=== PATIENT | male | born 1950 | race Caucasian/White ===

== ENCOUNTER 2020-09-08 10:42 | Emergency (ER) | payer MEDICARE, SELFPAY ==
[2020-09-08 10:43] VITALS: BP 124/78; PULSE 67; RESP 18; TEMP 35.6; O2SAT 94; BMI 40.5
--- NOTE | 2020-09-08 10:49 | ED.RN ---
ACCORDING TO TRIAGE SCREENING TOOL, PT REQUIRES SI PRECAUTIONS. CHARGE NURSE NOTIFIED OF PT COMPLAINTS. SOCIAL CONSULT INITIATED FROM TRIAGE, PT HERE ALSO FOR ABDOMINAL PAIN AND BLOOD IN STOOL.
--- NOTE | 2020-09-08 10:53 | ED.RN ---
THIS RN SPOKE WITH ED SUPERVISOR DRYING KENY, INFORMING HER OF PT PRESENTING COMPLAINTS.
--- NOTE | 2020-09-08 11:26 | CT_ITS ---
STUDY: CT ABDOMEN AND PELVIS WITH CONTRAST REASON FOR EXAM: Male, 70 years old. Abdominal pain RADIATION DOSAGE (If Supplied By Facility): CTDIvol = ( 26.26 ) mGy, DLP = ( 1792.28 ) mGycm TECHNIQUE: Transaxial images were obtained from the dome of the diaphragm to the symphysis pubis without oral contrast. IV 100mL Isovue-300 was administered. Sagittal and coronal images were reconstructed. Individualized dose optimization techniques were used for this CT. COMPARISON: None. FINDINGS: The visualized lung bases demonstrate minimal groundglass opacity at the left base. The visualized portions of the heart are within normal limits. Right liver cyst. Liver and spleen granulomata. There are surgical clips in the gallbladder fossa consistent with a prior cholecystectomy. There are multiple benign calcified granulomata of the spleen. Normal pancreas. There is a small, circumscribed, smooth, low attenuation left adrenal mass, consistent with an adrenal adenoma. Normal right adrenal gland. Normal right kidney. Normal left kidney. Normal visualized stomach. Normal small intestine. Normal colon. The appendix is visualized and appears normal. Normal abdominal aorta. Normal inferior vena cava. Normal retroperitoneum. Normal urinary bladder. Normal visualized prostate gland. Normal visualized abdominal wall portions of the anterior and left lateral abdominal wall are excluded from the [id number]. Normal osseous structures. CT/Abdomen/Pelvis W IV Cont ONLY IMPRESSION: No acute intra-abdominal process identified. Small focus of groundglass density in the left base is nonspecific and may represent infection in the appropriate clinical setting. Consider full chest CT for further evaluation. Prominent stool burden. Electronically Signed: Jeffery Hansen MD at 13:05 EDT Tel , Service support ,
[2020-09-08 11:39] LABS: Absolute Lymphocyte Count 1.56 X10^3/uL (0.83-4.51); Absolute Neutrophil Count 8.7 X10^3/uL (2.0-7.7); Basophil# 0.11 X10^3/uL; Eosinophil# 0.21 X10^3/uL; Eosinophils% 1.8 % (0-5); Hematocrit 48.1 % (40-54); Hemoglobin 15.9 g/dL (13.0-16.5); Lymphocyte # 1.56 X10^3/ul (0.83-4.51); Lymphocyte % 13.5 % (19-41); Mean Corp Hgb Conc 33.1 g/dL (32-36); Mean Corpuscular Volume 93.8 fL (80-94); Mean Platelet Vol. 9.2 fl (6.2-12.0); Monocyte# 0.85 X10^3/uL; Monocyte% 7.4 % (0-10); NRBC Flagged by Analyzer 0 % (0-5); Neutrophil # 8.73 X10^3/uL (2.7-7.7); Neutrophil % 75.8 % (47-70); Platelet Count 365 K/mm3 (150-450); Red Blood Count 5.13 M/mm3 (4.6-6.2); White Blood Count 11.5 K/mm3 (4.4-11.0)
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
[2020-09-08 11:47] LABS: White Blood Cells 0 SEEN /hpf (0-5)
--- NOTE | 2020-09-08 11:49 | EDS_ITS ---
HPI History of Present Illness Chief Complaint: Abd Pain Informant: patient and family Narrative Narrative: 70-year-old male presenting with abdominal pain. He states this is been ongoing over the last 6 weeks. He denies vomiting or diarrhea. He has noted some blood in his urine. He denies blood in his stool. He denies chest pain or shortness of breath. Denies fever. He has been depressed. He denies current thoughts of suicide. Family states he has been sleeping more than usual. Prior similar symptoms: Yes Recent Illness/Hospitalization: No PFSH [facility] Medical History (Updated 09/08/20 @ 16:[address] Nancy Ennis MD) Diabetes Home Medications buspirone 10 mg PO TID 10/17/15 [History Last Taken Unknown] clonazepam 1 mg PO TID 10/17/15 [History Last Taken Unknown] glipizide [Glucotrol XL] 10 mg PO DAILY 10/17/15 [History Last Taken Unknown] quetiapine [Seroquel XR] 200 mg PO BID 10/17/15 [History Last Taken Unknown] amiodarone [Pacerone] 100 mg PO DAILY 09/08/20 [History Last Taken Unknown] apixaban [Eliquis] 2.5 mg PO BID 09/08/20 [History Last Taken Unknown] citalopram 40 mg PO 09/08/20 [History Last Taken Unknown] metoprolol tartrate 50 mg PO DAILY 09/08/20 [History Last Taken Unknown] sucralfate 1 g PO QHS 09/08/20 [History Last Taken Unknown] Allergy/AdvReac Type Severity Reaction Status Date / Time metformin AdvReac Diarrhea Verified 09/08/20 10:42 Surgical History (Updated 09/08/20 @ 11:05 by Jadyn Dominguez RN) History of cholecystectomy History of cholecystectomy Social History Smoking Status: Former smoker ROS ROS ED Constitutional Constitutional ED: Denies fever(s) Eyes Eyes: Denies change in vision ENT ENT ED: Denies rhinorrhea or sore throat Cardiovascular Cardiovascular: Denies chest pain or palpitations Respiratory/Chest Respiratory/Chest: Denies cough or dyspnea Gastrointestinal Gastrointestinal: Reports abdominal pain; Denies diarrhea, nausea or vomiting Genitourinary Genitourinary ED: Reports hematuria; Denies dysuria Musculoskeletal Musculoskeletal: Denies myalgias Integumentary Denies rash Neurologic Neurologic: Denies headache(s) Psychiatric Psychiatric: Reports depression; Denies suicidal thoughts EXAM Physical Exam Const Vital Signs: 09/08/20 10:43 09/08/20 12:59 09/08/20 13:27 Temperature 96.0 F L Temperature Source Temporal Pulse Rate 67 63 63 Respiratory Rate 18 16 16 Blood Pressure 124/78 H 129/74 H 128/79 H Blood Pressure Mean 93 92 95 Pulse Ox 94 93 97 Oxygen Delivery Method Room Air Room Air Room Air 09/08/20 14:19 Temperature 98.2 F Temperature Source Oral Pulse Rate 64 Respiratory Rate 15 Blood Pressure 153/83 H Blood Pressure Mean 106 Pulse Ox 98 Oxygen Delivery Method Room Air Positive well nourished and well developed General Appearance ED: well developed HEENT Reports normocephalic and head/scalp atraumatic Eyes PERRL and EOMs intact bilaterally Neck supple General: Negative for tenderness Chest Wall inspection of chest normal Resp normal respiratory effort and clear to auscultation bilaterally Cardio regular rate and regular rhythm GI non-tender and non-distended Palpation: soft; Negative for guarding or rebound tenderness present no CVA tenderness Extremity normal to inspection Neuro oriented x3 Sensorium / Orientation: alert Psych mental status grossly normal Psych Narrative: Denies suicidal ideation Mood & Affect: depressed MDM MDM MDM Narrative Medical decision making narrative: Labs were reviewed. CT abdomen pelvis showed no acute process, prominent stool burden, groundglass density left base. Chest x-ray was obtained and shows 3.5 x 2.7 cm nodular density left perihilar region. Patient has no chest pain or shortness of breath. He is given referral to Dr. Johnston, pulmonology. He has hematuria and was referred to Dr. Maxwell, urology. Patient and were advised importance of follow-up for these findings. Patient was seen by the high school social science teacher in the emergency department. Due to his severe depression he will be voluntarily admitted to a psychiatric facility for evaluation. Patient is awaiting final disposition and will be checked out to the oncoming physician. Lab Data Attestation: I reviewed the patient's lab results. Labs: Laboratory Results - last 24 hr 09/08/20 09/08/20 09/08/20 11:02 11:08 11:08 WBC 11.5 H RBC 5.13 Hgb 15.9 Hct 48.1 MCV 93.8 MCH 31.0 MCHC 33.1 RDW Std Deviation 42.0 RDW Coeff of Kristyn 12.0 Plt Count 365 MPV 9.2 Immature Gran % (Auto) 0.500 Neut % (Auto) 75.8 H Lymph % (Auto) 13.5 L Walton % (Auto) 7.4 Eos % (Auto) 1.8 Baso % (Auto) 1.0 Absolute Neuts (auto) 8.7 H Absolute Lymphs (auto) 1.56 Nucleated RBC % 0 Sodium 136 Potassium 4.1 Chloride 101 Carbon Dioxide 28.0 Anion Gap 7 BUN 14 Creatinine 1.14 Estim Creat Clear Calc 64.04 Est GFR (MDRD) Af Amer 82 Est GFR (MDRD) Non-Af 68 BUN/Creatinine Ratio 12.3 Glucose 247 H Calcium 9.2 Total Bilirubin 0.70 AST 20 ALT 46 Alkaline Phosphatase 141 H Total Protein 7.8 Albumin 3.8 Globulin 4.0 Albumin/Globulin Ratio 1.0 Lipase 107 Urine Color Urine Clarity Urine pH Ur Specific [place] Urine Protein Urine Glucose (UA) Urine Ketones Urine Occult Blood Urine Nitrite Urine Bilirubin Urine Urobilinogen Ur Leukocyte Esterase Urine RBC Urine WBC Ur Squamous Epith Cells Urine Bacteria Urine Mucus Urine Opiates Screen NEGATIVE Urine Methadone Screen NEGATIVE Ur Barbiturates Screen NEGATIVE Ur Phencyclidine Scrn NEGATIVE Ur Amphetamines Screen NEGATIVE U Methamphetamin-MDMA NEGATIVE U Benzodiazepines Scrn NEGATIVE Urine Cocaine Screen NEGATIVE U Cannabinoids Screen NEGATIVE Ur Drug Screen Comment Ethyl Alcohol 09/08/20 09/08/20 11:20 13:30 WBC RBC Hgb Hct MCV MCH MCHC RDW Std Deviation RDW Coeff of Kristyn Plt Count MPV Immature Gran % (Auto) Neut % (Auto) Lymph % (Auto) Walton % (Auto) Eos % (Auto) Baso % (Auto) Absolute Neuts (auto) Absolute Lymphs (auto) Nucleated RBC % Sodium Potassium Chloride Carbon Dioxide Anion Gap BUN Creatinine Estim Creat Clear Calc Est GFR (MDRD) Af Amer Est GFR (MDRD) Non-Af BUN/Creatinine Ratio Glucose Calcium Total Bilirubin AST ALT Alkaline Phosphatase Total Protein Albumin Globulin Albumin/Globulin Ratio Lipase Urine Color Yellow Urine Clarity Sl. Cloudy Urine pH 6.0 Ur Specific [place] 1.020 Urine Protein 30 H Urine Glucose (UA) 50 H Urine Ketones Negative Urine Occult Blood 150 H Urine Nitrite Negative Urine Bilirubin Negative Urine Urobilinogen 1 H Ur Leukocyte Esterase Negative Urine RBC 10-25 SEEN Urine WBC 0 SEEN Ur Squamous Epith Cells 0-5 SEEN Urine Bacteria 1+ Urine Mucus 1+ Urine Opiates Screen Urine Methadone Screen Ur Barbiturates Screen Ur Phencyclidine Scrn Ur Amphetamines Screen U Methamphetamin-MDMA U Benzodiazepines Scrn Urine Cocaine Screen U Cannabinoids Screen Ur Drug Screen Comment Ethyl Alcohol 5.0 Radiography Chest X-Ray - ED: 1 View, Read by ED Physician and Read by Radiologist Diagnostic Testing: Radiology Impression Abdomen/Pelvis CT 09/08/20 11:26 IMPRESSION: No acute intra-abdominal process identified. Small focus of groundglass density in the left base is nonspecific and may represent infection in the appropriate clinical setting. Consider full chest CT for further evaluation. Prominent stool burden. Electronically Signed: Jeffery Hansen MD at 13:05 EDT Tel , Service support , Chest X-Ray 09/08/20 13:35 IMPRESSION: 3.5 cm x 2.7 cm nodular density in the left perihilar region. Correlation with CT scan is recommended. Electronically Signed: Salomón Heredia MD at 14:21 EDT , Service support , Discharge Plan Triage Chief Complaint: Abd Pain ED Provider: Nancy Ennis Dx/Rx/DC Orders Clinical Impression: Abdominal pain in male, Depression Prescriptions: No Action glipizide [Glucotrol XL] 10 MG tablet extended release 24hr 10 mg PO DAILY RF: 0 clonazepam 1 MG tablet 1 mg PO TID RF: 0 buspirone 10 MG tablet 10 mg PO TID RF: 0 quetiapine [Seroquel XR] 200 MG tablet extended release 24 hr 200 mg PO BID RF: 0 citalopram 40 mg tablet 40 mg PO RF: 0 metoprolol tartrate 50 mg tablet 50 mg PO DAILY RF: 0 sucralfate 1 gram tablet 1 g PO QHS RF: 0 amiodarone [Pacerone] 100 mg Tablet 100 mg PO DAILY RF: 0 Eliquis 2.5 mg Tablet 2.5 mg PO BID RF: 0 Primary Care Provider: Clayton Fabian Referrals: Hitesh Johnston MD [STAFF PHYSICIAN] - Angel Maxwell MD [STAFF PHYSICIAN] - Clayton Fabian MD [Primary Care Provider] -
[2020-09-08 11:56] LABS: Color, Urine Yellow (Yellow); Glucose, Dipstick 50 mg/dl (Normal); Ketone-Dipstick Negative (Negative); Leukocyte Esterase-Dipstick Negative /ul (Negative); Nitrite-Dipstick Negative (Negative); Occult Blood-Urine 150 /ul (Negative); Protein-Dipstick 30 mg/dl (Negative); Urine Bilirubin Dipstick Negative (Negative); Urine Clarity Sl. Cloudy (Clear); Urine Urobilinogen 1 mg/dl (Normal)
[2020-09-08 11:57] LABS: AST(SGOT) 20 U/L (15-37); Alanine Aminotransfer ALT/SGPT 46 U/L (16-61); Albumin, Serum 3.8 g/dL (3.2-5.0); Alkaline Phosphatase 141 U/L (45-117); Anion Gap 7 (5-15); BUN 14 mg/dL (7-18); BUN/Creat Ratio 12.3 RATIO (10-20); Calcium,Total 9.2 mg/dL (8.5-10.1); Chloride 101 mmol/L (98-107); Creatinine, Serum 1.14 mg/dL (0.70-1.30); EST Glomerular Filtration Rate 68 mL/min (>60); Est Glom Filt Rate - Afr Amer 82 mL/min (>60); Estimated Creatinine Clearance 64.04 ml/min; Glucose 247 mg/dL (74-106); Lipase 107 U/L (73-393); Potassium 4.1 mmol/L (3.5-5.1); Protein, Total 7.8 g/dL (6.4-8.2); Sodium Level 136 mmol/L (136-145)
[2020-09-08 12:05] LABS: Bacteria 1+ /hpf (None Seen); Mucous, Urine 1+ /hpf (<or=2+); Red Blood Cells-Urine 10-25 SEEN /hpf (0-5); Squamous Epithelial Cells - UA 0-5 SEEN /hpf (0-5)
--- NOTE | 2020-09-08 12:32 | CM.ED ---
r SOCIAL WORK ASSESSMENT Referral Source: Triage Suicidal screen Reason for Consult: Per report patient reports depression and triggered high risk for the depression screen. He reported to ED staff in triage that he?s been thinking about it and ?there are lots of ways?. ? ? Chief Compliant: Patient reports he has an increase in depression. Reports that he has suicidal thoughts ?on and off? with most recent being 1 week ago. Patient denied current suicidal thoughts. Patient said that he has a hard time taking a shower as he is fearful of having a panic attack. Patient said that when he has suicidal thought ?99% of the time I do not react. I do self-talk and it has worked for 20 years.? ? Patient?s nurse said that patient needed a lot of direction to follow commands related to taking off his clothes. ? Marital/Social History: Patient is to his , Shaniqua. ? Living Situation: Patient and his reside in a house together in [facility]. ? Support/Resources: Patient is disabled. 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 His is a support. Patient?s children were also noted to be calling in to check on patient. ? History: No ? Education and Employment History: Patient completed the 11th year of high school and then dropped out. He did return to school, 10 years later, to get his GED. No college. ? Mental Health Treatment/History: Patient was previously at [facility] 10-12 years ago and ?has been fine since?. [facility] His next appointment is November 17, per patient?s report. ? Triggers/Stressors: His current medical condition. Patient reports to MD that he feels his ?depression? is causing his abdominal pain. ? Coping Skills: Patient reports he does ?self-talk? and ?gets on the [employer], watches tv and helps his ?. ? Abuse Issues: Denied any current or past abuse issues. ? Substance Abuse History: Patient reports he quit drinking in 1995. He reports he has never used drugs. ? Risk to Self/Others: Suicidal- Patient reports that his most recent thought was 1 week ago but told the MD it was 6 weeks ago. He may not be an accurate historian. Patient said that his suicidal plan is to ?run lawnmower into the highway[place] He reports no previous attempts. ? Homicidal-None ? Mental Status Exam: Orientation-Patient oriented to year, day of week, Month and date. Oriented to self. Oriented to location and purpose of why he is in the ED. X4. Memory-Patient was able to recall that his next appt with MD at [facility] was November 17. He was able to recall how many children and children he has accurately. ? Appearance/General Behavior: Wearing hospital gown. Not shaven, somewhat disheveled. Mood/Affect: Patient said ?I am ok? but to this keno writer / runner and MD he appears very depressed. Communication Pattern: Responds to questions. Smiles at times. Thought Process: Appropriate. Reports that several times a week he is sleeping and wakes up to see children playing baseball. SW asked what happened and he said, ?I blink my eyes and they disappear?. Patient reports this occurs a couple of times a week. General Intellectual Functioning: Average Judgment: Fair ? Assessment: Patient reports his mood is ?ok?. Denies suicidal thoughts today. Patient said that he has ?a lot of that? when asked about anxiety. Patient said that he is afraid to take a shower as he is afraid, he will have a panic attack. Patient denied impulsivity. Reports psychotic features at bedtime when he sees children playing baseball. Patient is sleeping 21 out of 24 hours a day. SW asked patient if he feels rested and he said ?sometimes?. ? Patient is voluntary in agreement for placement in inpatient psychiatric unit to assess for his psychiatric needs. ? ? ? Plan: Refer to inpatient psychiatric unit for medication management. Hilda WITT
[2020-09-08 12:59] VITALS: BP 129/74; PULSE 63; RESP 16; O2SAT 93
[2020-09-08 13:27] VITALS: BP 128/79; PULSE 63; RESP 16; O2SAT 97
--- NOTE | 2020-09-08 13:35 | RAD_ITS ---
STUDY: X-RAY CHEST REASON FOR EXAM: Male, 70 years old. Sob TECHNIQUE: Single AP portable view of the chest. COMPARISON: Comparison is made with prior study dated 10/20/2015. FINDINGS: EKG electrodes are seen. Hyperinflation. Stable mild increased interstitial markings. There is a new 3.5 cm x 2.7 cm nodular density in the left perihilar region. There is no demonstrated pleural abnormality. Normal size heart. Normal mediastinum and david. Normal visualized pulmonary arteries. There is atherosclerotic tortuosity of the aortic arch and descending thoracic aorta. There are diffuse degenerative changes of the visualized thoracic spine. Normal visualized ribs, clavicles, and shoulders. There is no demonstrated abnormality of the visualized soft tissue structures of the upper abdomen. RAD/Chest 1 View (Portable) IMPRESSION: 3.5 cm x 2.7 cm nodular density in the left perihilar region. Correlation with CT scan is recommended. Electronically Signed: Salomón Heredia MD at 14:21 EDT , Service support ,
[2020-09-08 14:05] LABS: Amphetamine Urine VISTA NEGATIVE (<1000 ng/mL); Barbiturate Urine VISTA NEGATIVE (< 200 ng/mL); Benzodiazepine Urine VISTA NEGATIVE (< 200 ng/mL); Cocaine Urine VISTA NEGATIVE (< 300 ng/mL); Ecstacy Urine VISTA NEGATIVE (< 500 ng/mL); Methadone Urine VISTA NEGATIVE (< 300 ng/mL); PCP Urine VISTA NEGATIVE (< 25 ng/mL); THC Urine VISTA NEGATIVE (< 50 ng/mL); Vista UDS pH Range 5
[2020-09-08 14:19] VITALS: BP 153/83; PULSE 64; RESP 15; TEMP 36.8; O2SAT 98
--- NOTE | 2020-09-08 15:09 | CM.UR ---
Addendum entered by Hilda Reina 09/10/20 10:49: FARAZ repeatedly encouraged patient to contact insurance provider for amount of payment they will be responsible for. FARAZ and Esther for registration had also spoke to regarding what her plan covers inpatient vs outpatient. She was provided handout and reported later that she threw it away. FARAZ updated RN and MD about plan for discharge and time. FARAZ called [facility] and updated them about time of discharge. Late entry from 09/08/20 at 20:[address] MECHANICAL ENGINEER [employer]WS Addendum entered by Hilda Reina 09/08/20 22:25: concession worker called patient's insurance provider and spoke to insurance provider. She said that the receiving agency/hospital does the insurance review. Hilda Reina RD MECHANICAL ENGINEER [employer] Addendum entered by Hilda Reina 09/08/20 19:18: Patient faxed additional information to [place] [employer] [facility]. FARAZ received call from [facility] declining patient. FARAZ called Florencia at [facility]. She said that she checked insurance and saw it was approved without issues so it is in network, per Florencia. Florencia called back and needed additional paperwork. She said that she needs covid, x ray of chest, urine screen and signed papers for consent. FARAZ went to patient's room and provided with discharge MD orders for pulmonary and urology. FARAZ met with and patient and stated that patient has been accepted. Advised that Florencia told this caption writer that she ran insurance so patient is in network. FARAZ encouraged patient's family to check with financial at [facility] tomorrow to verify and indicated she would. FARAZ called Florencia as family stated that Alex, the son will pick patient up at discharge. FARAZ inquired about visitation. NO visitation because of COVID but can make phone calls. Florencia said that patient has been approved and accepting MD is Dr. Laurent. FARAZ completed transfer paperwork, updated MD, update RN to make RN to RN call to Florencia. FARAZ updated family regarding visitation. understood and was greatful she could call and speak to patient. SW asked about any needs and patient asked for ice, which was provided for him. Patient and updated regarding the transport scheduled time. Plan: PSychiatric inpatient treatment At [facility] in [place] Hildaangie Reina RD MECHANICAL ENGINEER LISWS Addendum entered by Hilda Reina 09/08/20 16:31: FARAZ asked patient about guns and confirmed no guns or access to prescription meds. Patient said it's been like that for a long time. Addendum entered by Hilda Reina 09/08/20 15:25: FARAZ and Esther from Registration printed off patients benefits under insurance. FARAZ told patients that this is not a guarantee of payement (Esther witnessed it). Patient's was encouraged to contact insurance network. Hilda witt Original Note: FARAZ note Referral Source: Reason for referral: Depressive state, reports past suicide thoughts FARAZ called Jose L at [facility]. Jose L said that patient probably would not benefit from the program due to cognition andn amount of sleep he is getting. FARAZ called [facility]. Spoke to charge nurse. They have beds. She said to fax information over. FARAZ called [facility]. Made referral. Faxed referral to [facility]. SW was approved by [facility] for treatment however, family declined as it is not in [place] but [place]. FARAZ called patient's insurance [place]. FARAZ spoke to Rajni and they [facility] is in network. FARAZ spoke to percertication and they said that the receiving facility does the percertication. FARAZ met with patient to address specific questions from inpatient psychiatric unit. Patient is a full code. No DME's at home. NO POA. Patient has been taking meds as prescibed. He did not get covid vaccine but has been tested a couple of weeks ago and was negative. FARAZ updated patient and . FARAZ received call from [facility] and they inquired if patient had a ride home and this caption writer said yes. FARAZ updated patient. FARAZ will continue to follow. Hilda WITT
[2020-09-08] MEDS: Dicyclomine 20 MG/2 ML Vial IM (16:42)
[2020-09-08 16:43] VITALS: BP 111/73; PULSE 72; RESP 16; O2SAT 92
[2020-09-08] MEDS: Acetaminophen 500 MG Tablet 1000 MG PO (18:45)
[2020-09-08 19:43] VITALS: BP 140/73; PULSE 101; RESP 26; TEMP 37.6; O2SAT 97
[2020-09-08] MEDS: busPIRone 5 MG Tablet 20 MG PO (19:54)
== END 2020-09-08 20:00 ==
PROVIDERS: Emergency Medicine; Emergency Provider Emergency Medicine; PCP Family Medicine
DX: R10.9 Unspecified abdominal pain (principal); F32.9 Major depressive disorder, single episode, unspecified; E11.9 Type 2 diabetes mellitus without complications; Z79.84 Long term (current) use of oral hypoglycemic drugs; Z79.01 Long term (current) use of anticoagulants; Z79.899 Other long term (current) drug therapy; Z87.891 Personal history of nicotine dependence
CPT/HCPCS: 71045; 74177; 80053; 80307; 81001; 82077; 83690; 85025; 87426; 96372; 99285; J7040; Q9967; A4216

== ENCOUNTER 2020-09-23 16:48 | Emergency (ER) | payer MEDICARE, SELFPAY ==
[2020-09-23 16:50] VITALS: BP 153/76; PULSE 76; RESP 15; TEMP 36.6; O2SAT 96; BMI 39.4
[2020-09-23 16:51] VITALS: BP 153/76; PULSE 76; RESP 15; TEMP 36.6; O2SAT 96
[2020-09-23 17:06] LABS: Absolute Lymphocyte Count 2.63 X10^3/uL (0.83-4.51); Absolute Neutrophil Count 6.8 X10^3/uL (2.0-7.7); Basophil% 0.9 % (0-1); Eosinophil# 0.42 X10^3/uL; Eosinophils% 3.8 % (0-5); Hematocrit 46.2 % (40-54); Lymphocyte # 2.63 X10^3/ul (0.83-4.51); Lymphocyte % 23.8 % (19-41); Mean Corp Hgb Conc 32.5 g/dL (32-36); Mean Corpuscular Hgb 30.7 pg (27.0-32.0); Mean Corpuscular Volume 94.7 fL (80-94); Monocyte# 1.04 X10^3/uL; Monocyte% 9.4 % (0-10); NRBC Flagged by Analyzer 0 % (0-5); Neutrophil # 6.84 X10^3/uL (2.7-7.7); Neutrophil % 61.7 % (47-70); Platelet Count 329 K/mm3 (150-450); RBC Distribution Width CV 11.9 % (11.6-14.6); RBC Distribution Width SD 41.7 fl (35.1-43.9); Red Blood Count 4.88 M/mm3 (4.6-6.2); White Blood Count 11.1 K/mm3 (4.4-11.0)
[2020-09-23 17:50] LABS: ALB/GLOB Ratio 0.7 RATIO (0.9-2.4); AST(SGOT) 21 U/L (15-37); Alanine Aminotransfer ALT/SGPT 47 U/L (16-61); Albumin, Serum 3.5 g/dL (3.2-5.0); Alkaline Phosphatase 155 U/L (45-117); Anion Gap 2 (5-15); BUN 18 mg/dL (7-18); BUN/Creat Ratio 17.1 RATIO (10-20); Calcium,Total 9.4 mg/dL (8.5-10.1); Chloride 102 mmol/L (98-107); Creatinine, Serum 1.05 mg/dL (0.70-1.30); EST Glomerular Filtration Rate 75 mL/min (>60); Est Glom Filt Rate - Afr Amer 90 mL/min (>60); Estimated Creatinine Clearance 69.52 ml/min; Globulin 4.7 g/dL (2.2-4.2); Glucose 237 mg/dL (74-106); Potassium 4.4 mmol/L (3.5-5.1); Protein, Total 8.2 g/dL (6.4-8.2); Sodium Level 137 mmol/L (136-145)
[2020-09-23 17:51] VITALS: BP 153/76; PULSE 76; RESP 15; TEMP 36.6; O2SAT 96
--- NOTE | 2020-09-23 18:55 | EKG12_ITS ---
Test Reason : Blood Pressure : / mmHG Vent. Rate : 071 BPM Atrial Rate : 071 BPM P-R Int : 238 ms QRS Dur : 112 ms QT Int : 438 ms P-R-T Axes : -13 -44 005 degrees QTc Int : 475 ms Sinus rhythm with 1st degree A-V block Left axis deviation ST & T wave abnormality, consider anterior ischemia Prolonged QT Abnormal ECG Confirmed by ANIYA CASTILLO, IRWIN ([id number]), online content editor EMILY MCCLENDON ([id number]) on 09/27/2020 2:01:15 PM Referred By: EDELMIRA Confirmed By:IRWIN KWAN MD
[2020-09-23 19:11] LABS: Bacteria 0 SEEN /hpf (None Seen); Mucous, Urine 0 SEEN /hpf (<or=2+)
[2020-09-23 19:20] LABS: Color, Urine Yellow (Yellow); Glucose, Dipstick 1000 mg/dl (Normal); Ketone-Dipstick Negative (Negative); Leukocyte Esterase-Dipstick 25 /ul (Negative); Nitrite-Dipstick Negative (Negative); Occult Blood-Urine 50 /ul (Negative); Protein-Dipstick 15 mg/dl (Negative); Urine Bilirubin Dipstick Negative (Negative); Urine Clarity Sl. Cloudy (Clear); Urine Urobilinogen Normal (Normal)
[2020-09-23 19:27] LABS: Red Blood Cells-Urine 0-5 SEEN /hpf (0-5); Squamous Epithelial Cells - UA 0-5 SEEN /hpf (0-5); White Blood Cells 0-5 SEEN /hpf (0-5)
--- NOTE | 2020-09-23 20:22 | EDS_ITS ---
HPI History of Present Illness Chief Complaint: Complaint Narrative Narrative: Patient presenting for evaluation secondary to a urine culture which grew out Pseudomonas. Patient states that he was told to come to the ED for a dose of IV antibiotics. Patient is not having any dysuria currently. He did have some previously and had a Bee catheter placed. Patient feels otherwise well. [facility] Medical History Diabetes Home Medications buspirone 10 mg PO TID 10/17/15 [History Last Taken Unknown] clonazepam 1 mg PO TID 10/17/15 [History Last Taken Unknown] glipizide [Glucotrol XL] 10 mg PO DAILY 10/17/15 [History Last Taken Unknown] quetiapine [Seroquel XR] 200 mg PO BID 10/17/15 [History Last Taken Unknown] amiodarone [Pacerone] 100 mg PO DAILY 09/08/20 [History Last Taken Unknown] apixaban [Eliquis] 5 mg PO BID 09/08/20 [History Last Taken Unknown] citalopram 40 mg PO DAILY 09/08/20 [History Last Taken Unknown] metoprolol tartrate 50 mg PO DAILY 09/08/20 [History Last Taken Unknown] sucralfate 1 g PO QHS 09/08/20 [History Last Taken Unknown] tamsulosin 0.4 mg PO DAILY 09/23/20 [History Last Taken Unknown] Allergy/AdvReac Type Severity Reaction Status Date / Time metformin AdvReac Diarrhea Verified 09/23/20 16:49 Surgical History History of cholecystectomy History of cholecystectomy Social History Smoking Status: Former smoker ROS ROS ED Constitutional Constitutional ED: Denies chills, fever(s) or sweats Eyes Eyes: Denies blurry vision or change in vision ENT ENT ED: Denies ear pain or sore throat Cardiovascular Cardiovascular: Denies chest pain, palpitations or racing heartbeat Respiratory/Chest Respiratory/Chest: Denies cough, dyspnea or sputum Gastrointestinal Gastrointestinal: Denies abdominal pain, constipation, diarrhea, nausea or vomiting Genitourinary Genitourinary ED: Denies dysuria, hematuria or urinary frequency Musculoskeletal Musculoskeletal: Denies arthralgias, myalgias or neck pain Integumentary Denies abscess, Abrasions or rash Neurologic Neurologic: Denies headache(s), paresthesias or weakness Psychiatric Psychiatric: Denies anxiety, depression, suicidal ideation or suicidal thoughts Endocrine Endocrinology: Denies polydipsia or polyuria EXAM Physical Exam Const Vital Signs: 09/23/20 16:50 09/23/20 16:51 09/23/20 17:51 Temperature 97.8 F 97.8 F 97.8 F Temperature Source Temporal Temporal Temporal Pulse Rate 76 76 76 Respiratory Rate 15 15 15 Blood Pressure 153/76 H 153/76 H 153/76 H Blood Pressure Mean 101 101 101 Pulse Ox 96 96 96 Oxygen Delivery Method Room Air Room Air Room Air 09/23/20 20:39 Temperature Temperature Source Pulse Rate 80 Respiratory Rate 14 Blood Pressure 149/71 H Blood Pressure Mean Pulse Ox 99 Oxygen Delivery Method Positive well nourished General Appearance ED: NAD HEENT normocephalic and atraumatic Eyes PERRL and EOMs intact bilaterally Resp normal respiratory effort and clear to auscultation bilaterally Cardio regular rate and regular rhythm Negative for no CVA tenderness Skin Lesions: no lesions Rashes: no rashes MDM MDM MDM Narrative Medical decision making narrative: Patient was sent in for a dose of IV antibiotics due to ciprofloxacin is one of the medications that is on his sensitivities however his doctor sent him in because his QT QT is over 500. He felt it was unsafe to give him Cipro for this. I did review the urine culture and sensitivity and it looks like it is 50,000 colony-forming units. I checked an EKG which shows normal sinus rhythm with first-degree AV block without signs of ischemic change. His QT is 438 QTC 475. As interpreted by myself I rechecked a urinalysis today which is negative for infection. He does have some blood in his urine but this is likely due to the recent Bee catheterization. Patient's lab work is unremarkable discussed with Dr. Fabian he did agree that the patient should have another urine culture but did not think he needed antibiotics at this time. Discussed at length with patient and as well as son over the phone. Impression: 1. Feared complaint not found Lab Data Labs: Laboratory Results - last 24 hr 09/23/20 09/23/20 09/23/20 16:59 16:59 19:05 WBC 11.1 H RBC 4.88 Hgb 15.0 Hct 46.2 MCV 94.7 H MCH 30.7 MCHC 32.5 RDW Std Deviation 41.7 RDW Coeff of Kristyn 11.9 Plt Count 329 MPV 9.0 Immature Gran % (Auto) 0.400 Neut % (Auto) 61.7 Lymph % (Auto) 23.8 Toole % (Auto) 9.4 Eos % (Auto) 3.8 Baso % (Auto) 0.9 Absolute Neuts (auto) 6.8 Absolute Lymphs (auto) 2.63 Nucleated RBC % 0 Sodium 137 Potassium 4.4 Chloride 102 Carbon Dioxide 33.0 H Anion Gap 2 L BUN 18 Creatinine 1.05 Estim Creat Clear Calc 69.52 Est GFR (MDRD) Af Amer 90 Est GFR (MDRD) Non-Af 75 BUN/Creatinine Ratio 17.1 Glucose 237 H Calcium 9.4 Total Bilirubin 0.50 AST 21 ALT 47 Alkaline Phosphatase 155 H Total Protein 8.2 Albumin 3.5 Globulin 4.7 H Albumin/Globulin Ratio 0.7 L Urine Color Yellow Urine Clarity Sl. Cloudy Urine pH 6.0 Ur Specific [place] 1.020 Urine Protein 15 H Urine Glucose (UA) 1000 H Urine Ketones Negative Urine Occult Blood 50 H Urine Nitrite Negative Urine Bilirubin Negative Urine Urobilinogen Normal Ur Leukocyte Esterase 25 H Urine RBC 0-5 SEEN Urine WBC 0-5 SEEN Ur Squamous Epith Cells 0-5 SEEN Urine Bacteria 0 SEEN Urine Mucus 0 SEEN Discharge Plan Triage Chief Complaint: Complaint ED Provider: Tho Ledesma Dx/Rx/DC Orders Instructions: ED Symptoms With Uncertain Cause Prescriptions: No Action glipizide [Glucotrol XL] 10 MG tablet extended release 24hr 10 mg PO DAILY RF: 0 clonazepam 1 MG tablet 1 mg PO TID RF: 0 buspirone 10 MG tablet 10 mg PO TID RF: 0 quetiapine [Seroquel XR] 200 MG tablet extended release 24 hr 200 mg PO BID RF: 0 citalopram 40 mg tablet 40 mg PO DAILY RF: 0 metoprolol tartrate 50 mg tablet 50 mg PO DAILY RF: 0 sucralfate 1 gram tablet 1 g PO QHS RF: 0 amiodarone [Pacerone] 100 mg Tablet 100 mg PO DAILY RF: 0 Eliquis 2.5 mg Tablet 5 mg PO BID RF: 0 tamsulosin 0.4 mg capsule 0.4 mg PO DAILY RF: 0 Primary Care Provider: Clayton Fabian Referrals: Clayton Fabian MD [Primary Care Provider] - Disposition Disposition: Home, self care Discharge Date/Time: 09/23/20 20:39
[2020-09-23 20:39] VITALS: BP 149/71; PULSE 80; RESP 14; O2SAT 99
== END 2020-09-23 20:39 | disposition home or self-care (01) ==
PROVIDERS: Emergency Provider Student in an Organized Health Care Education/Training Program; PCP Family Medicine
DX: Z71.1 Person with feared health complaint in whom no diagnosis is made (principal); Z79.899 Other long term (current) drug therapy; Z87.891 Personal history of nicotine dependence
CPT/HCPCS: 80053; 81001; 85025; 87086; 87088; 93005; 99283; A4216

== ENCOUNTER 2020-12-07 11:13 | Day surgery (SDC) | payer MEDICARE, SELFPAY ==
[2020-12-07] VITALS (13 sets, daily range): BP systolic 102–136; BP diastolic 42–81; PULSE 70–100; RESP 14–20; TEMP 36.4–36.9; O2SAT 89–98; BMI 37.0; BMI 37.3
--- NOTE | 2020-12-07 | PEN_PTH ---
PATIENT: MARION ONEIL [place] [facility] [place][id number] AGE/SX: 70/M ROOM: RE12/07/[address]: Dr. Angel Maxwell MD : 1950 BED: DIS: 12/08/2020 SPEC #: [id number] RECD: 12/07/20 15:27 STATUS: KAY GERARD #: [id number] ARPITA: 12/07/20 00:[address]: Angel Maxwell DEPT: SURGICAL PATHOLOGY RECD BY: Sanaz Morin ENTERED: 12/07/20 15:43 SP TYPE: PENIS OTHR DR: Dr. Clayton Fabian MD Tissues: Penis, NOS Procedures: Frozen Section (charge) Surgery Specimen Level IV HEADER OPERATION: Penile biopsy PRE-OP DIAGNOSIS: Penile mass TISSUE SUBMITTED: Penile mass, FS at 1523 FROZEN SECTION DIAGNOSIS Penile biopsy: Invasive squamous cell carcinoma. SARAH:julia 12/07/2020 MICROSCOPIC DIAGNOSIS Penile mass, biopsy: Invasive well-differentiated squamous cell carcinoma. See comment. SARAH:julia 12/09/2020 COMMENT The entire specimen is replaced by the tumor. Immunohistochemistry ([id number]) for surrogate HPV marker (p16) will be performed and results will be reported separately. Case has been reviewed in consultation with Dr. Whitley who concurs with the above diagnosis. IDC:AM MICROSCOPIC DESCRIPTION Slides are reviewed. GROSS DESCRIPTION Received fresh for frozen section diagnosis labeled with the patient's name is a specimen designated benign biopsy. The specimen consists of a piece of pink, congested soft tissue measuring 2.5 x 1 x 0.1 cm. The specimen is bisected and submitted entirely for frozen section diagnosis in one cassette. / SARAH:julia 12/08/20 TC:0 CPT: 89097, 06029
--- NOTE | 2020-12-07 | IMM_PTH ---
PATIENT: MARION ONEIL [place] [facility] [place][id number] AGE/SX: 70/M ROOM: RE12/07/[address]: Dr. Angel Maxwell MD : 1950 BED: DIS: 12/08/2020 SPEC #: [id number] RECD: 12/09/20 12:58 STATUS: KAY REQ #: [id number] ARPITA: 12/07/20 00:[address]: Angel Maxwell DEPT: IMMUNOHISTOCHEMISTRY RECD BY: Sanaz Morin ENTERED: 12/09/20 12:59 SP TYPE: IMMUNO OTHR DR: Dr. Clayton Fabian MD Tissues: Penis, NOS Procedures: p16 (initial) PHYSICIAN & INSTITUTION [place] [id number] SPECIMEN INFORMATION: Tissue Source: Penile mass Clinical Info: Penile mass Specimen Number: [id number] CPT code: 24681 METHODOLOGY: Deparaffinized sections of prefer/formalin-fixed tissue or PAP/DQ stained slides are incubated with monoclonal/polyclonal antibodies/oligonucleotide probes. Localization is made via biotin free immunoperoxidase method. Appropriate controls are performed and reacted as expected. Results on target cell population are indicated in the following table: RESULTS: ANTIBODY / CLONE RESULT P16 (E6H4) negative These tests were developed and their performance characteristics determined by [facility]. They may not have been cleared or approved by the U.S. Food and Drug Administration. The FDA has determined that such clearance or approval is not necessary. The above immunohistochemical/dualISH markers are ordered and reviewed by the Pathologist. INTERPRETATION: Penile mass, biopsy: Invasive squamous cell carcinoma. SJ:julia 12/12/2020
[2020-12-07] MEDS: Lactated Ringers 1,000 ML 100 ML IV ×2 (11:45→17:57)
[2020-12-07 12:30] LABS: Hemoglobin A1c 6.9 % (3.8-5.6)
--- NOTE | 2020-12-07 14:09 | SUR.PREOP ---
Patient updated and made aware of surgery delay. Patient and were initially upset, but after talking with nurse feel better. Patient needs met, patient's needs met. Patient and do not need anything at this time. Nursing staff will continue to update patient and .
[2020-12-07] MEDS: Bupivacaine Mpf 0.5% 30 ML VIAL (14:55)
--- NOTE | 2020-12-07 14:59 | PCM.HP.STD ---
HPI - General HPI Narrative MARION ONEIL, is a 70 M who presents for a deep biopsy of the penis he was initially seen for retention of urine and has been doing self intermittent catheterization when we did urodynamic testing the staff noticed that he had a very firm penis on exam the preoperative setting 2 days ago I did examine the penis very hard from penis some necrotic area in the tip of the penis is uncircumcised otherwise no obvious fungating mass but given how hard the penis is unsuspecting the male penis cancer so organ to do a deep biopsy of the penis today. The other potential etiologies discussed with the patient was chronic Peyronie's disease or chronic priapism with blood. [facility] Medical History (Updated 12/07/20 @ 14:[address] Angel Maxwell MD) Anxiety Back pain Cardiology follow-up encounter Depression Diabetes Diabetes Former smoker History of cardioversion History of echocardiogram History of stress test History of ulceration Hypertension Pubic bone fracture Sleep apnea Walker as ambulation aid Home Medications buspirone 10 mg PO TID 10/17/15 [History Last Taken 12/06/20 09:00] clonazepam 1 mg PO 1700 10/17/15 [History Last Taken 12/06/20 09:00] glipizide [Glucotrol XL] 5 mg PO DAILY 10/17/15 [History Last Taken 12/06/20 09:00] quetiapine [Seroquel XR] 400 mg PO QHS 10/17/15 [History Last Taken 12/06/20 09:00] Eliquis 5 mg PO BID 09/08/20 [History Last Taken 12/02/20] citalopram 40 mg PO DAILY 09/08/20 [History Last Taken 12/06/20 09:00] metoprolol tartrate 50 mg PO BID 09/08/20 [History Last Taken 12/07/20 09:00] sucralfate 1 g PO 1200 09/08/20 [History Last Taken 12/06/20 09:00] tamsulosin 0.4 mg PO DAILY 09/23/20 [History Last Taken 12/06/20 09:00] aspirin 81 mg PO DAILY 11/30/20 [History Last Taken 12/02/20] clonazepam 0.5 mg PO 0900 11/30/20 [History Last Taken 12/06/20 09:00] ciprofloxacin HCl [Cipro] 500 mg PO BID #10 tab 12/07/20 [Rx Last Taken Unknown] oxycodone-acetaminophen 1 tab PO Q6H PRN 7 Days #20 tab 12/07/20 [Rx Last Taken Unknown] Allergy/AdvReac Type Severity Reaction Status Date / Time metformin AdvReac Diarrhea Verified 12/07/20 11:58 Surgical History (Updated 11/30/20 @ 13:22 by Maris Brewster) History of cholecystectomy Social History Smoking Status: Former smoker ROS Constitutional Constitutional: Denies chills, fever(s) or malaise Eyes Eyes: Denies blurry vision or change in vision ENT HEENT: Reports none Cardiovascular Cardiovascular: Denies chest pain or palpitations Respiratory/Chest Respiratory/Chest: Denies cough or shortness of breath with exertion Gastrointestinal Gastrointestinal: Denies abdominal pain, constipation or diarrhea Musculoskeletal Musculoskeletal: Denies back pain, joint stiffness or joint swelling Integumentary Integumentary: Denies dry skin, jaundice, lesions or rash Neurologic Neurologic: Denies confusion, syncope or weakness Psychiatric Psychiatric: Reports none; Denies anxiety or depression Endocrine Endocrinology: Denies excessive sweating, fatigue or flushing Hematologic/Lymphatic Hematologic/Lymphatic: Denies anemia, easy bleeding or easy bruising Vital Signs Vital Signs Vital Signs: 12/07/20 11:45 Temperature 98.4 F Temperature Source Temporal Pulse Rate 71 Respiratory Rate 20 H Respiratory Pattern Normal Blood Pressure 125/69 H Blood Pressure Mean 87 Blood Pressure Source Monitor Blood Pressure Position Sitting Blood Pressure Location Left Arm Pulse Ox 93 Oxygen Delivery Method Room Air Weight Weight: 120.6 kg Body Mass Index (BMI) 37.0 Physical Exam Const alert and oriented x3 General Appearance: cooperative HEENT normocephalic, head/scalp atraumatic, EAC's normal and TM's normal bilaterally Eyes PERRL and EOMs intact bilaterally Pupil: sluggish Neck no lymphadenopathy, supple and no JVD General: trachea midline Lymph Lymphatic: no lymphadenopathy noted, lymphedema and lymphadenopathy Resp normal respiratory effort, normal air movement and clear to auscultation bilaterally Cardio regular rate, regular rhythm and peripheral pulses 2+ throughout GI soft to palpation, non-tender and non-distended Extremity normal capillary refill and no clubbing, cyanosis or edema General Extremity: no tenderness to palpation of joints or extremities Skin no rashes or lesions noted General Skin Exam: turgor normal Lesions: no lesions Rashes: no rashes Neuro CN's II-XII intact bilaterally Speech: speech normal Motor Exam: strength 5/5 throughout; Negative for general weakness Psych thought process normal, cooperative and affect normal Appearance: appropriate Results Lab / Micro Data Labs: Laboratory Results - last 24 hr 12/07/20 11:40: Hemoglobin A1c 6.9 H Micro: Microbiology 12/06/20 13:50 Interface Orders SARS-CoV-2 Antigen (Rapid) - Final Assessment & Plan Assessment/Plan (1) Penile mass: PLAN: Plan to proceed with a deep biopsy of the penis.
--- NOTE | 2020-12-07 15:01 | PCM.DC ---
Discharge Instructions Diet Discharge Diet: No restrictions Activity Discharge Activity: Return to Normal Activity and May Not Drive (while taking narcotic pain medications.) Dressing / Incision Call your doctor if you observe: Fever of 101 or Higher Follow Up Care Please Follow Up With: Angel Maxwell MD When: Call [phone] for an appointment Test Results: Test results from this visit will be discussed in further detail at your follow-up appointment, if applicable. Discharge Plan Admission Primary Reason for Your Visit: deep penile biopsy Attending Provider: Angel Maxwell Primary Care Provider: Clayton Fabian Discharge Orders/Prescriptions Prescriptions: New ciprofloxacin HCl [Cipro] 500 mg tablet 500 mg PO BID Qty: 10 RF: 0 oxycodone-acetaminophen 5-325 mg tablet 1 tab PO Q6H PRN (Reason: pain) 7 Days Qty: 20 RF: 0 Continued glipizide [Glucotrol XL] 10 MG tablet extended release 24hr 5 mg PO DAILY RF: 0 clonazepam 1 MG tablet 1 mg PO 1700 RF: 0 buspirone 10 MG tablet 10 mg PO TID RF: 0 quetiapine [Seroquel XR] 200 MG tablet extended release 24 hr 400 mg PO QHS RF: 0 citalopram 40 mg tablet 40 mg PO DAILY RF: 0 metoprolol tartrate 50 mg tablet 50 mg PO BID RF: 0 sucralfate 1 gram tablet 1 g PO 1200 RF: 0 tamsulosin 0.4 mg capsule 0.4 mg PO DAILY RF: 0 clonazepam 0.5 mg tablet 0.5 mg PO 0900 RF: 0 Held Eliquis 2.5 mg Tablet 5 mg PO BID RF: 0 Hold Instructions: Resume on 12/14/20. aspirin 81 mg Capsule 81 mg PO DAILY RF: 0 Hold Instructions: Resume on 12/14/20. Referrals / Follow Up: Angel Maxwell MD [STAFF PHYSICIAN] - Clayton Fabian MD [Primary Care Provider] - Disposition Disposition (needs filled in before D/C Order can be placed): Home, Self Care
--- NOTE | 2020-12-07 15:40 | PCM.OPRPT ---
Report of Operation Date of Procedure: 12/07/20 Pre-Operative Diagnosis: Hard firm penile area Post-Operative Diagnosis: Same Surgery/Procedure Performed:: Dorsal slit and deep penile mass biopsy Description of Surgical Findings:: 70-year-old male who I saw in the office for retention of urine during the work-up we found that he had a very hard penis but no obvious mass he also was not circumcised difficult to retract the foreskin so today were going to do a dorsal slit and a deep penile mass I suspect he has carcinoma. He did not want to proceed with the penectomy today so we just cannot do a biopsy and then want to make arrangements for either penectomy locally or as a referral to outside hospital. Patient was taken back to the operating room at the [facility] of anesthesia he was placed prone on the table the penis and testicles were prepped and draped in usual sterile fashion the foreskin was uncircumcised you are not able to retract the foreskin I then created dorsal slit in the foreskin and this retracted he can see the glans of the penis and then there is a necrotic black area in the glans of the penis but no obvious mass we can feel hardness along the entire length of the penis pretty deep all the way to the pubic fat it was hard. I then did a biopsy in the glans using a 15 blade knife going about 1 cm deep into the glans and made a triangular wedge shaped biopsy I then cauterized the base of the biopsy and then used 0 chromic stitches to close the biopsy site in interrupted fashion the stop the bleeding and then I closed the dorsal slit with a running stitch to finish the dorsal slit. We sent off the tissue for frozen and this came back positive with invasive squamous cell carcinoma as I suspected. Again the patient did not want to proceed with the penectomy today so he will be aware of the diagnosis in the postoperative setting and will arrange for treatment. Surgeon: gail Type of Anesthesia: General Admit VTE Documentation VTE Present on Admission: No VTE Mechan Device Prophylaxis: SCD's
[2020-12-07 16:06] LABS: Bedside Glucose 153 mg/dL (70-110)
[2020-12-07] MEDS: Ipratropium/Albuterol Sulfate 3 ML AMPUL.NEB INHALATION (16:41)
[2020-12-07] MEDS: Acetaminophen 325 MG Tablet 650 MG PO ×2 (17:58→23:59)
[2020-12-07] MEDS: oxyCODONE 5 MG Tablet PO ×2 (19:49→20:42)
[2020-12-07] MEDS: clonazePAM 1 MG Tablet PO (19:51)
[2020-12-07] MEDS: busPIRone 5 MG Tablet 10 MG PO (20:44)
[2020-12-07] MEDS: QUEtiapine 100 MG Tablet 400 MG PO (20:44)
[2020-12-07] MEDS: Metoprolol Tartrate 50 MG Tablet PO (20:45)
[2020-12-08] VITALS (8 sets, daily range): BP systolic 94–133; BP diastolic 44–76; PULSE 61–86; RESP 18; TEMP 36.9–37; O2SAT 2–95; BMI 37.3
[2020-12-08] MEDS: Lactated Ringers 1,000 ML 100 ML IV (02:34)
[2020-12-08] MEDS: busPIRone 5 MG Tablet 10 MG PO (06:01)
[2020-12-08] MEDS: Acetaminophen 325 MG Tablet 650 MG PO (06:11)
[2020-12-08] MEDS: oxyCODONE 5 MG Tablet PO ×2 (06:11→12:13)
--- NOTE | 2020-12-08 07:57 | PCM.PN.BLA ---
Progress Note Patient underwent biopsy penis yesterday unfortunately came back positive with invasive penile cancer. Patient was kept in the hospital for some breathing issues now is doing better go home today. I offered the patient a penectomy and to keep in the hospital to proceed with removal of the penis tomorrow however he wants to think about it and is struggling with a diagnosis and does not want to proceed with penectomy tomorrow so we will discharge him home I also will offer him a referral for second opinion.
[2020-12-08] MEDS: Metoprolol Tartrate 50 MG Tablet PO (08:32)
[2020-12-08] MEDS: Citalopram 40 MG TABLET PO (08:32)
[2020-12-08] MEDS: glipiZIDE XL 5 MG Tablet PO (08:32)
[2020-12-08] MEDS: Tamsulosin HCl 0.4 MG Capsule PO (08:32)
[2020-12-08] MEDS: clonazePAM 0.5 MG Tablet PO (08:37)
--- NOTE | 2020-12-08 10:44 | CASEMGMT ---
Addendum entered by Leslee Dinh 12/08/20 12:34: Faxed referral to [facility] for O2. TC to [place] to verify receipt. Original Note: RN ASYA notified that pt will need O2 upon dc. RN CM in to pt room. Pt states he currently has a BIPAP at home. Patient was provided a list of [facility] providers including quality and resource use data and consistent with the patient?s preferred geographic region, medical needs, and insurance network. The patient?s preferred provider [facility]. Pt states he works with them already. Pt will be dc'd home with parra. Pt states he has been self cathing self 3x/day. He denies concerns with the parra. He states his is able to help him at home. Pt denies having any assistance in the home nor the need for it. Pt denies any questions or concerns.
--- NOTE | 2020-12-08 11:39 | CASEMGMT ---
TC to Dr. Fabian's office, pt PCP to verify a qualifying dx for O2. Spoke with nurse Yazmin who verifies pt has COPD.
--- NOTE | 2020-12-08 12:04 | CHAPLAIN ---
Type of Pastoral Visit ___ Initial Visit ___ Follow-up Visit ___ On-call Visit ___ General Patient Visit ___ Spiritual Assessment ___ Family Conference ___ Bereavement ___ Rapid Response ___ Code Blue ___ Other (describe below) Pastoral Care Referral From ___ Patient ___ Family ___ Nurse ___ Physician ___ Director Telehealth ___ Count Room Clerk ___ Other (describe below) Sacrament/Intervention ___ Active listening ___ Anointing ___ Mormonism ___ Bereavement ___ Communion ___ Malinda exploration ___ ___ Life review ___ Prayer ___ Reconciliation ___ Sacrament of Sick ___ Supportive presence ___ Wedding ___ Other (describe below) Pastoral Comments patient was sleeping and visit was postponed
[2020-12-08] MEDS: Sucralfate 1 GM Tablet PO (12:15)
== END 2020-12-08 16:30 | disposition home or self-care (01) ==
LOC: SDC 11:15 → AC 11:18 → MS3 17:30
PROVIDERS: Anesthesiology; PCP Family Medicine; Referring Provider Urology; Visit Provider Urology
PROC: (CPT 54105; principal; 2020-12-07 13:25)
DX: C60.1 Malignant neoplasm of glans penis (principal); F32.9 Major depressive disorder, single episode, unspecified; F41.9 Anxiety disorder, unspecified; G47.30 Sleep apnea, unspecified; E11.9 Type 2 diabetes mellitus without complications; Z87.891 Personal history of nicotine dependence; Z79.899 Other long term (current) drug therapy; Z79.84 Long term (current) use of oral hypoglycemic drugs; Z79.01 Long term (current) use of anticoagulants; Z79.82 Long term (current) use of aspirin; I10 Essential (primary) hypertension
CPT/HCPCS: 54105; 82962; 83036; 87426; 88305; 88331; 88342; 94640; 99251; 99406; C9803; J7120; G0463; J2405